=== PATIENT | female | born 1970 | race Asian ===

== ENCOUNTER 2021-02-22 17:20 | Observation (INO) ==
[2021-02-22 18:44] LABS: Appearance Urine Clear (Clear); Bilirubin Urine Negative (Negative); Blood Urine Negative (Negative); Color Urine Yellow; Glucose Urine UA Negative (Negative); Ketones Urine Negative (Negative); Leukocyte Esterase Urine Negative (Negative); Nitrite Urine Negative (Negative); Protein Urine Negative (Negative); Specific Gravity Urine 1.013 (1.000-1.030); Urobilinogen Urine Negative (Negative); pH Urine 5.5 (4.5-7.5)
[2021-02-22 19:02] LABS: Hematocrit (blood only) 24.1 % (37-47); Hemoglobin 6.7 g/dL (12.0-16.0); Mean Corpuscular Hemoglobin 18.3 pg (25-34); Mean Corpuscular Hgb Conc 27.8 g/dL (32-36); Mean Corpuscular Volume 65.7 fL (80-100); Mean Platelet Volume 8.7 fL (7.4-10.4); Platelet Count 417 K/uL (130-400); RDW Coefficient of Variation 19.7 % (11.5-14.5); RDW Standard Deviation 47.2 fL (36.4-46.3); Red Blood Count 3.67 M/uL (4.2-5.4); White Blood Count 5.28 K/uL (4.8-10.8)
[2021-02-22] MEDS ORDERED: SODIUM CHLORIDE 0.9% 250 ML IV PRN (19:03)
[2021-02-22 19:13] LABS: Anisocytosis Present; Basophils # (auto) 0.02 K/uL (0-0.2); Basophils % (auto) 0.4 %; Eosinophils # (auto) 0.03 K/uL (0-0.5); Eosinophils % (auto) 0.6 %; Lymphocytes # (auto) 2.62 K/uL (1.2-3.4); Lymphocytes % (auto) 49.6 %; Microcytosis Present; Monocytes # (auto) 0.44 K/uL (0.11-0.59); Monocytes % (auto) 8.3 %; Neutrophils # (auto) 2.17 K/uL (1.4-6.5); Neutrophils % (auto) 41.1 %; Ovalocytes 1+; Tear Drop Cells Occasional
[2021-02-22 19:19] LABS: Albumin Level 3.6 gm/dl (3.4-5.0); BUN Creatinine Ratio 20.7 (10-20); Calcium 8.4 mg/dl (8.5-10.1); Creatinine Clr Calc Pharmacy 101.5 ml/min; Est GFR (African American) 124.2; Est GFR (Non-African American) 107.2; Potassium 3.6 mmol/L (3.5-5.1)
[2021-02-22 19:21] LABS: Albumin Globulin Ratio 0.9 (0.9-2); Bilirubin,Total 0.4 mg/dl (0.2-1); Globulin 4.2 gm/dl (2.5-4.0); Total Protein 7.8 gm/dl (6.4-8.2)
[2021-02-22 20:26] LABS: Influenza A virus by PCR Negative (Neg); Influenza B virus by PCR Negative (Neg); RSV by PCR Negative (Neg); SARS CoV2 RNA(COVID-19) InHosp NEGATIVE (Negative)
[2021-02-22] MEDS ORDERED: NITROGLYCERIN SL 0.4 MG/TAB TAB SL PRN (22:28)
[2021-02-22] MEDS ORDERED: ACETAMINOPHEN 325 MG TAB PO PRN (22:28)
[2021-02-22] MEDS ORDERED: ONDANSETRON INJ 2 MG/ML 2 ML VIAL IV PRN (22:28)
--- NOTE | 2021-02-23 01:32 | Emergency Department Note ---
History of Present Illness General Chief Complaint: Abnormal Labs/Diagnostic Testing Stated Complaint: ABNORMAL LABS, LOW IRON Time Seen by Provider: 02/22/21 19:01 History of Present Illness Provider Complaint: + abnormal lab (Low iron) Description of abnormal result: Low iron Associated symptoms: + shortness of breath (Exertional); no fever, no chills, no chest pain, no rash, no nausea and no abdominal pain HPI narrative: No melena or Hematochezia. Patient states she is on her menstrual period patient denies any heavy or excessive menstrual periods. Home Medications Medication Instructions Recorded Confirmed Type cholecalciferol (vitamin D3) 0 mcg PO QAM 02/22/21 02/22/21 History [Vitamin D3] multivitamin 1 tab PO QAM 02/22/21 02/22/21 History Allergies Allergy/AdvReac Type Severity Reaction Status Date / Time No Known Allergies Allergy Unverified 02/22/21 19:40 Past Med/Surg History Medical History (Updated 02/23/21 @ 01:32 by Michael Ley) No pertinent family history No pertinent past medical history Surgical History (Updated 02/23/21 @ 01:28 by Michael Ley) No pertinent past surgical history Social History Smoking Status: Never smoker Hx Alcohol Use: No Hx Substance Use: No Preferred Language: German Communication Ability: Effective Demand Planning Analyst Required: No Beliefs That Will Affect Care: Episcopalian Episcopalian Beliefs: baptist Current Living Situation: Family Feels Safe at Home: Yes Safety Concerns: Feels Safe At This Time Assistive Devices: None Review of Systems A total of 10 systems reviewed and were otherwise negative Physical Exam Vital Signs: Vital Signs - 24 hr 02/22/21 17:29 02/22/21 19:30 02/22/21 20:32 Temperature 36.5 C 36.7 C Temperature Source Temporal Artery Sc an Oral Pulse Rate 79 70 Pulse Rate [Bilate ral Radial] 70 Pulse Rhythm Regular Pulse Rhythm [Bila teral Radial] Regular Pulse Strength Normal Pulse Strength [Bi lateral Radial] Normal Respiratory Rate 16 18 16 Respiratory Effort / Characteristics Non-Labored Sponta neous Non-Labored Respiratory Depth Normal Normal Respiratory Patter n Regular Regular Blood Pressure 138/73 108/72 Blood Pressure [Ri ght Arm] 133/89 Blood Pressure Chaya n 94 84 Blood Pressure Chaya n [Right Arm] 103 Blood Pressure Pos ition Sitting Sitting Blood Pressure Pos ition [Right Arm] Sitting Pulse Oximetry 100 100 100 Oxygen Delivery Me thod Room Air Room Air Sepsis Recent Feve r Within 48 Hours No Sepsis New/Unexpla ined Change in Men naina Status N/A Sepsis Action Take n by Nursing No Action Required 02/22/21 20:48 02/22/21 20:50 02/22/21 21:05 Temperature 37.1 C 37.0 C 36.9 C Temperature Source Oral Oral Oral Pulse Rate 59 L 65 78 Pulse Rate [Bilate ral Radial] Pulse Rhythm Regular Regular Regular Pulse Rhythm [Bila teral Radial] Pulse Strength Normal Normal Normal Pulse Strength [Bi lateral Radial] Respiratory Rate 18 18 16 Respiratory Effort / Characteristics Respiratory Depth Respiratory Patter n Blood Pressure 126/71 120/81 120/73 Blood Pressure [Ri ght Arm] Blood Pressure Chaya n 89 94 88 Blood Pressure Chaya n [Right Arm] Blood Pressure Pos ition Sitting Sitting Blood Pressure Pos ition [Right Arm] Pulse Oximetry 100 100 100 Oxygen Delivery Me thod Sepsis Recent Feve r Within 48 Hours Sepsis New/Unexpla ined Change in Men naina Status Sepsis Action Take n by Nursing Physical Exam: Physical Exam GENERAL: She is oriented to person, place, and time. She appears well-developed and well-nourished. She does not appear distressed. HENT: Exam performed. -Head: Normocephalic and atraumatic. -Right Ear: External ear normal. No mastoid tenderness. -Left Ear: External ear normal. No mastoid tenderness. -Mouth/Throat: The oropharynx is clear and moist. No trismus in the jaw. No dental abscesses or uvula swelling. No oropharyngeal exudate or tonsillar abscesses. EYES: Conjunctivae and EOM are normal. Pupils are equal, round, and reactive to light. Right eye exhibits no discharge. Left eye exhibits no discharge. No scleral icterus. NECK: Normal range of motion. Neck supple. No JVD present. No spinous process tenderness present. No carotid bruit present. No rigidity. No tracheal deviation and normal range of motion present. No Brudzinski's sign and no Kernig's sign noted. CV: Normal rate, regular rhythm, normal heart sounds and intact distal pulses. There is no peripheral edema. Palpable radial pulses bue. PULM/CHEST: Effort normal and breath sounds normal. No respiratory distress. No stridor. She has no wheezes. She has no rales. -Chest Wall: She exhibits no tenderness. ABD: The abdomen is soft. Bowel sounds are normal. She has no distension. No mass is present. There is no tenderness. There is no rebound, no guarding, no Dorman's sign and no tenderness at McBurney's point. Rovsig negative. Rectal: Performed with female nursing plant safety leader at bedside. Hemoccult negative. MUSC/SKEL: Normal range of motion. There is no peripheral edema, tenderness or deformity. LYMPH: No cervical adenopathy. NEURO: She is alert and oriented to person, place, and time. She has normal strength. No cranial nerve deficit or sensory deficit. Coordination and gait normal. GCS eye subscore is 4. GCS verbal subscore is 5. GCS motor subscore is 6. Cerebellar tests wnl. SKIN: Skin is warm and dry. She is not diaphoretic. PSYCH: She has a normal mood and affect. Behavior is normal. Judgment and thought content normal. Course Course 1900: The patient was evaluated in room A12. A complete history and physical exam was performed Cardiac monitoring: An order was placed for continuous cardiac monitoring. The monitor shows a rate of 60 with sinus rhythm 1935: Vital signs stable. Labs show hemoglobin of 6.7. Patient be transfused 2 units packed red blood cells. Patient will be admitted to the [facility] team Dr. Palomino notified Medical Decision Making Laboratory Data Result diagrams: 02/22/21 18:40 02/22/21 18:40 Lab Results 02/22/21 02/22/21 02/22/21 Range/Units 18:30 18:40 18:40 WBC 5.28 (4.8-10.8) K/uL RBC 3.67 L (4.2-5.4) M/uL Hgb 6.7 L* (12.0-16.0) g/dL Hct 24.1 L (37-47) % MCV 65.7 L (80-100) fL MCH 18.3 L (25-34) pg MCHC 27.8 L (32-36) g/dL RDW Std Deviation 47.2 H (36.4-46.3) fL RDW Coeff of Syed 19.7 H (11.5-14.5) % Plt Count 417 H (130-400) K/uL MPV 8.7 (7.4-10.4) fL Immature Gran % (Auto) 0.0 % Neut % (Auto) 41.1 % Lymph % (Auto) 49.6 % [place] % (Auto) 8.3 % Eos % (Auto) 0.6 % Baso % (Auto) 0.4 % Neut # (Auto) 2.17 (1.4-6.5) K/uL Lymph # (Auto) 2.62 (1.2-3.4) K/uL [place] # (Auto) 0.44 (0.11-0.59) K/uL Eos # (Auto) 0.03 (0-0.5) K/uL Baso # (Auto) 0.02 (0-0.2) K/uL Immature Gran # (Auto) 0.00 (0.00-0.02) K/uL Anisocytosis Present Microcytosis Present Tear Drop Cells Occasional Ovalocytes 1+ Sodium 140 (136-145) mmol/L Potassium 3.6 (3.5-5.1) mmol/L Chloride 109 H (98-107) mmol/L Carbon Dioxide 25 (21-32) mmol/L Anion Gap 5.0 (3-11) BUN 13 (7-18) mg/dl Creatinine 0.61 (0.6-1.2) mg/dl Est Cr Clr Drug Dosing 101.5 ml/min Est GFR ( Amer) 124.2 Est GFR (Non-Af Amer) 107.2 BUN/Creatinine Ratio 20.7 H (10-20) Glucose 90 (70-99) mg/dl Calcium 8.4 L (8.5-10.1) mg/dl Iron 17 L (35-150) mcg/dl Total Bilirubin 0.4 (0.2-1) mg/dl AST 15 (15-37) U/L ALT 20 (12-78) U/L Alkaline Phosphatase 93 (45-117) U/L Total Protein 7.8 (6.4-8.2) gm/dl Albumin 3.6 (3.4-5.0) gm/dl Globulin 4.2 H (2.5-4.0) gm/dl Albumin/Globulin Ratio 0.9 (0.9-2) Urine Color Yellow Urine Appearance Clear (Clear) Urine pH 5.5 (4.5-7.5) Ur Specific [place] 1.013 (1.000-1.030) Urine Protein Negative (Negative) Urine Glucose (UA) Negative (Negative) Urine Ketones Negative (Negative) Urine Blood Negative (Negative) Urine Nitrite Negative (Negative) Urine Bilirubin Negative (Negative) Urine Urobilinogen Negative (Negative) Ur Leukocyte Esterase Negative (Negative) COVID-19 Eval Order SARS-CoV-2 (PCR) (Negative) Influenza Type A (PCR) (Neg) Influenza Type B (PCR) (Neg) RSV (RT-PCR) (Neg) Blood Type Blood Type Recheck Antibody Screen Crossmatch 02/22/21 02/22/21 02/22/21 Range/Units 19:24 19:26 19:35 WBC (4.8-10.8) K/uL RBC (4.2-5.4) M/uL Hgb (12.0-16.0) g/dL Hct (37-47) % MCV (80-100) fL MCH (25-34) pg MCHC (32-36) g/dL RDW Std Deviation (36.4-46.3) fL RDW Coeff of Syed (11.5-14.5) % Plt Count (130-400) K/uL MPV (7.4-10.4) fL Immature Gran % (Auto) % Neut % (Auto) % Lymph % (Auto) % [place] % (Auto) % Eos % (Auto) % Baso % (Auto) % Neut # (Auto) (1.4-6.5) K/uL Lymph # (Auto) (1.2-3.4) K/uL [place] # (Auto) (0.11-0.59) K/uL Eos # (Auto) (0-0.5) K/uL Baso # (Auto) (0-0.2) K/uL Immature Gran # (Auto) (0.00-0.02) K/uL Anisocytosis Microcytosis Tear Drop Cells Ovalocytes Sodium (136-145) mmol/L Potassium (3.5-5.1) mmol/L Chloride (98-107) mmol/L Carbon Dioxide (21-32) mmol/L Anion Gap (3-11) BUN (7-18) mg/dl Creatinine (0.6-1.2) mg/dl Est Cr Clr Drug Dosing ml/min Est GFR ( Amer) Est GFR (Non-Af Amer) BUN/Creatinine Ratio (10-20) Glucose (70-99) mg/dl Calcium (8.5-10.1) mg/dl Iron (35-150) mcg/dl Total Bilirubin (0.2-1) mg/dl AST (15-37) U/L ALT (12-78) U/L Alkaline Phosphatase (45-117) U/L Total Protein (6.4-8.2) gm/dl Albumin (3.4-5.0) gm/dl Globulin (2.5-4.0) gm/dl Albumin/Globulin Ratio (0.9-2) Urine Color Urine Appearance (Clear) Urine pH (4.5-7.5) Ur Specific [place] (1.000-1.030) Urine Protein (Negative) Urine Glucose (UA) (Negative) Urine Ketones (Negative) Urine Blood (Negative) Urine Nitrite (Negative) Urine Bilirubin (Negative) Urine Urobilinogen (Negative) Ur Leukocyte Esterase (Negative) COVID-19 Eval Order [facility] at [facility] SARS-CoV-2 (PCR) (Negative) Influenza Type A (PCR) (Neg) Influenza Type B (PCR) (Neg) RSV (RT-PCR) (Neg) Blood Type B Positive Blood Type Recheck B Positive Antibody Screen NEGATIVE Crossmatch See Detail 02/22/21 Range/Units 19:35 WBC (4.8-10.8) K/uL RBC (4.2-5.4) M/uL Hgb (12.0-16.0) g/dL Hct (37-47) % MCV (80-100) fL MCH (25-34) pg MCHC (32-36) g/dL RDW Std Deviation (36.4-46.3) fL RDW Coeff of Syed (11.5-14.5) % Plt Count (130-400) K/uL MPV (7.4-10.4) fL Immature Gran % (Auto) % Neut % (Auto) % Lymph % (Auto) % [place] % (Auto) % Eos % (Auto) % Baso % (Auto) % Neut # (Auto) (1.4-6.5) K/uL Lymph # (Auto) (1.2-3.4) K/uL [place] # (Auto) (0.11-0.59) K/uL Eos # (Auto) (0-0.5) K/uL Baso # (Auto) (0-0.2) K/uL Immature Gran # (Auto) (0.00-0.02) K/uL Anisocytosis Microcytosis Tear Drop Cells Ovalocytes Sodium (136-145) mmol/L Potassium (3.5-5.1) mmol/L Chloride (98-107) mmol/L Carbon Dioxide (21-32) mmol/L Anion Gap (3-11) BUN (7-18) mg/dl Creatinine (0.6-1.2) mg/dl Est Cr Clr Drug Dosing ml/min Est GFR ( Amer) Est GFR (Non-Af Amer) BUN/Creatinine Ratio (10-20) Glucose (70-99) mg/dl Calcium (8.5-10.1) mg/dl Iron (35-150) mcg/dl Total Bilirubin (0.2-1) mg/dl AST (15-37) U/L ALT (12-78) U/L Alkaline Phosphatase (45-117) U/L Total Protein (6.4-8.2) gm/dl Albumin (3.4-5.0) gm/dl Globulin (2.5-4.0) gm/dl Albumin/Globulin Ratio (0.9-2) Urine Color Urine Appearance (Clear) Urine pH (4.5-7.5) Ur Specific [place] (1.000-1.030) Urine Protein (Negative) Urine Glucose (UA) (Negative) Urine Ketones (Negative) Urine Blood (Negative) Urine Nitrite (Negative) Urine Bilirubin (Negative) Urine Urobilinogen (Negative) Ur Leukocyte Esterase (Negative) COVID-19 Eval Order SARS-CoV-2 (PCR) NEGATIVE (Negative) Influenza Type A (PCR) Negative (Neg) Influenza Type B (PCR) Negative (Neg) RSV (RT-PCR) Negative (Neg) Blood Type Blood Type Recheck Antibody Screen Crossmatch MDM Narrative Vital signs stable. Labs show hemoglobin of 6.7. Patient be transfused 2 units packed red blood cells. Patient will be admitted to the [facility] hospitalist team Dr. Palepu notified Impression & Plan Anemia Critical Care Time Critical Care Time: Yes Total Critical Care Time: 35 I have personally spent greater than 35 minutes of critical care time in the direct management of this patient. This includes bedside care, interpretation of diagnostic studies, and testing, discussion with consultants, patient, and family members, and other required patient management activities. This 35 minutes is in excess of all separately billable procedures. Discharge Plan Visit Data Chief Complaint: Abnormal Labs/Diagnostic Testing Stated Complaint: ABNORMAL LABS, LOW IRON ED Provider: Michael Ley Discharge Problem: Anemia Patient Disposition: Admitted As Inpatient Discharge Instructions Interventions: ED Discharge Assessment Last Done: 02/22/21 22:40 Discharge Problem: Anemia Qualifiers: Anemia type: unspecified type Qualified Code(s): D64.9 - Anemia, unspecified
--- NOTE | 2021-02-23 01:36 | History and Physical Report ---
DATE OF ADMISSION: 02/22/2021 CHIEF COMPLAINT: Anemia. HISTORY OF PRESENT ILLNESS: This is a 50-year-old female with past medical history significant for recurrent UTIs, history of migraines. Was sent from the family doctor because of outpatient labs showing anemia with hemoglobin of 6.9. The patient states she has 3 kids and since her third kid was born in 2012,since then she did not see any doctor. She is from [place]. She was in [place] for 10 years and 4 years ago she moved to [place]. She works in [employer]. She went to family doctor on 02/11/2021 because of headaches. She has a history of migraines, but they are not getting better. At that time, she also complained of shortness of breath on hiking, on exertion. Excedrin Migraine over the counter for migraine was recommended. For shortness of breath on exertion and fatigue, labs were done, which showed anemia and the PCP was trying to call her, but she did not seed cone picker the phone for the last 2 weeks and today she got a letter in the mail and she came to the hospital. She denies any blood in the stools or black stools. No hematuria, no abdominal pain, no diarrhea or constipation, no chest pain, no dizziness, no blurred vision, no earache, no runny nose, no cough, no fever, no chills. No Heavy menses. The patient says she is not eating healthy. She only eats , white rice mixed with brown rice every day, does not eat much vegetables, does not like meat or fish. She has three kids and she works in [employer] and she is always busy and she thought her fatigue was possibly from her busy life and never went to a doctor. Currently resting comfortably and hemodynamically stable. ALLERGIES: No known drug allergies. PAST MEDICAL HISTORY: As mentioned above. PAST SURGICAL HISTORY: No surgical history on file. MEDICATIONS: Recently started on vitamin D and multivitamin. FAMILY HISTORY: Mother had a stroke. SOCIAL HISTORY: No smoking, no alcohol. Lives with her family. REVIEW OF SYSTEMS: As per HPI. Rest of the review of systems negative. PHYSICAL EXAMINATION: GENERAL: The patient is of moderate build, not in acute distress. VITAL SIGNS: Temperature 37, pulse 65, respiratory rate 18, blood pressure 120/81, oxygen 100% on room air. HEENT: Pupils equal, round, reactive to light. Oral mucosa moist. NECK: No JVD, no neck masses. CARDIOVASCULAR: S1, S2 heard, regular rate and rhythm, no murmur, no gallop. RESPIRATORY SYSTEM: Normal AP diameter. No accessory muscle use. No wheezing, no crackles. ABDOMEN: Soft, bowel sounds present, nontender. No distention. CENTRAL NERVOUS SYSTEM: Cranial nerves II-XII grossly intact. Nonfocal. EXTREMITIES: No edema, no erythema. LABORATORY DATA: WBC 5.2, hemoglobin 6.7, hematocrit 24.1, platelets 417. Sodium 140, potassium 3.6, chloride 109, bicarbonate 25, BUN 13, creatinine 0.6, serum glucose 90, calcium 8.4, iron 17, total bilirubin 0.4, AST 15, ALT 20, alkaline phosphatase 93. Urinalysis negative. SARS-CoV-2 PCR negative. Influenza A and B PCR negative, RSV PCR negative. Vaccination, as per the [facility], she received J and J COVID vaccine on 02/04/2021. ASSESSMENT AND PLAN: A 50-year-old female who presents with shortness of breath on exertion and anemia. 1. Symptomatic anemia with shortness of breath on exertion: Hemoglobin is 6.7, microcytic anemia. Iron is low at 17. As per the patient, she only eats brown rice mixed with white rice, does not eat any vegetables and does not eat meat. She says her menses are getting shorter, no heavy bleeding. No other obvious source of bleeding. We will check stool for Hemoccult. We will also check vitamin B12 and folate levels. ER ordered 2 units of PRBCs, which will be continued.Consult GI for any other further recommendations. May need iron supplement on discharge and follow up with PCP for any further workup and follows of labs.. 2. History of migraines: Tylenol p.r.n. for now. 3. Deep vein thrombosis prophylaxis: Sequential compression devices. DISPOSITION: Admit to [facility]. Expect to discharge home and follow with family doctor. BEV
[2021-02-23 05:56] LABS: BUN Creatinine Ratio 25.6 (10-20); Creatinine Clr Calc Pharmacy 96.7 ml/min; Est GFR (African American) 122.3; Est GFR (Non-African American) 105.5; Magnesium 2.3 mg/dl (1.8-2.4); Potassium 3.9 mmol/L (3.5-5.1)
[2021-02-23 06:01] LABS: Ferritin 4.2 ng/ml (8-388)
[2021-02-23 06:04] LABS: Hematocrit (blood only) 32.3 % (37-47); Hemoglobin 9.8 g/dL (12.0-16.0); Mean Corpuscular Hemoglobin 22.1 pg (25-34); Mean Corpuscular Hgb Conc 30.3 g/dL (32-36); Mean Corpuscular Volume 72.9 fL (80-100); Mean Platelet Volume 8.6 fL (7.4-10.4); Platelet Count 283 K/uL (130-400); RDW Coefficient of Variation 24.7 % (11.5-14.5); RDW Standard Deviation 64.9 fL (36.4-46.3); Red Blood Count 4.43 M/uL (4.2-5.4); White Blood Count 4.81 K/uL (4.8-10.8)
[2021-02-23 06:11] LABS: Anisocytosis Present; Basophils # (auto) 0.03 K/uL (0-0.2); Basophils % (auto) 0.6 %; Eosinophils # (auto) 0.06 K/uL (0-0.5); Eosinophils % (auto) 1.2 %; Hypochromasia Present; Immature Granulocytes # (auto) 0.01 K/uL (0.00-0.02); Immature Granulocytes % (auto) 0.2 %; Lymphocytes # (auto) 2.82 K/uL (1.2-3.4); Lymphocytes % (auto) 58.6 %; Monocytes # (auto) 0.43 K/uL (0.11-0.59); Monocytes % (auto) 8.9 %; Neutrophils # (auto) 1.46 K/uL (1.4-6.5); Neutrophils % (auto) 30.5 %; Ovalocytes 1+
[2021-02-23 06:39] LABS: Folate (Folic Acid) 17.4 ng/ml (>5.38)
--- NOTE | 2021-02-23 07:15 | Hospitalist Progress Note ---
Date of Service February 23, 2021 Assessment & Plan (1) Microcytic anemia: A 50-year-old female who presents with shortness of breath on exertion and anemia. 1. Symptomatic anemia with shortness of breath on exertion: Hemoglobin 6.7 on admission, microcytic anemia. Iron is low at 17. - iron def. anemia, likely diet related, but will need to rule out other causes As per the patient, she only eats brown rice mixed with white rice, does not eat any vegetables and does not eat meat. She says her menses are getting shorter, no heavy bleeding. No other obvious source of bleeding. UA negat. for blood Hemoccult ordered. checked vitamin B12 and folate levels - wnl. CT abd./pelvis - 1. No evidence of bowel obstruction. No evidence of free air 2. Trace pericholecystic fluid. No gallbladder distention. No stones identified. 3. No renal, ureteral, or bladder calculi identified 4. No evidence of acute diverticulitis. No evidence of acute appendicitis. 5. No evidence of occult intra-abdominal or pelvic malignancy ER ordered 2 units of PRBCs, pt is now s/p blood transfusion, current Hgb 9.8 GI consulted for any other further recommendations. Recommend outpt EGD/ colonoscopy. Iron supplement on discharge. Pt is to closely follow up with PCP for any further workup and follows of labs. 2. History of migraines: Tylenol p.r.n. for now. DVT prophylaxis: SCDs. DISPOSITION: Plan to discharge home and follow with family doctor and GI. Admission and Anticipated Discharge Date Admission Date: February 22, 2021 Subjective Patient seen in follow-up of anemia She was transfused 2 units overnight Currently hemoglobin is up 9.8, she feels well, has no symptoms, no complaints - specifically denies any chest pain, shortness of breath, dizziness, lightheadedness Patient reports she never had much symptoms besides headache and shortness of breath when hiking GI consulted Review of Systems Review of Systems: All systems reviewed & are unremarkable except as noted in HPI & below Constitutional: no fever and no chills Respiratory: no cough and no dyspnea Cardiovascular: no chest pain and no palpitations Gastrointestinal: no abdominal pain, no nausea and no vomiting Physical Exam Physical Exam: GENERAL: The patient is of moderate build, not in acute distress. HEENT: NC/AT, Pupils equal, round, reactive to light. Oral mucosa moist. NECK: No JVD, no neck masses. CARDIOVASCULAR: S1, S2 heard, regular rate and rhythm, no murmur, no gallop. RESPIRATORY SYSTEM: Normal AP diameter. No accessory muscle use. No wheezing, no crackles. ABDOMEN: Soft, bowel sounds present, nontender. No distention. NEURO: Alert oriented x3, speech fluent, no facial asymmetry, moves all 4 extremities spontaneously and w/o difficulty EXTREMITIES: No edema, no erythema. SIN: warm, dry, no rashes Results & Data Results & Data ([facility]) Vital Signs (Past 12 Hours) Vital Signs Temp Pulse Pulse Pulse Resp BP BP 02/23/21 02:47 36.5 C 65 18 112/69 02/23/21 01:45 36.3 C L 59 L 16 115/80 02/23/21 00:45 36.6 C 51 L 16 120/80 02/23/21 00:15 37 C 43 L 16 109/71 02/23/21 00:00 36.6 C 59 L 16 111/74 02/22/21 23:55 62 02/22/21 23:41 36.7 C 55 L 16 115/76 02/22/21 22:41 36.9 C 63 16 111/73 02/22/21 22:28 36.7 C 92 H 18 118/71 02/22/21 21:05 36.9 C 78 16 120/73 02/22/21 20:50 37.0 C 65 18 120/81 02/22/21 20:48 37.1 C 59 L 18 126/71 02/22/21 20:32 36.7 C 70 16 108/72 02/22/21 19:30 70 18 133/89 Pulse Ox 02/23/21 02:47 98 02/23/21 01:45 97 02/23/21 00:45 98 02/23/21 00:15 96 02/23/21 00:00 96 02/22/21 23:55 02/22/21 23:41 97 02/22/21 22:41 99 02/22/21 22:28 100 02/22/21 21:05 100 02/22/21 20:50 100 02/22/21 20:48 100 02/22/21 20:32 100 02/22/21 19:30 100 Laboratory Results 02/23/21 02/23/21 02/23/21 Range/Units 05:20 05:20 05:20 WBC 4.81 (4.8-10.8) K/uL RBC 4.43 (4.2-5.4) M/uL Hgb 9.8 L D (12.0-16.0) g/dL Hct 32.3 L (37-47) % MCV 72.9 L D (80-100) fL MCH 22.1 L (25-34) pg MCHC 30.3 L (32-36) g/dL RDW Std Deviation 64.9 H (36.4-46.3) fL RDW Coeff of Syed 24.7 H (11.5-14.5) % Plt Count 283 (130-400) K/uL MPV 8.6 (7.4-10.4) fL Immature Gran % (Auto) 0.2 % Neut % (Auto) 30.5 % Lymph % (Auto) 58.6 % Glenn % (Auto) 8.9 % Eos % (Auto) 1.2 % Baso % (Auto) 0.6 % Neut # (Auto) 1.46 (1.4-6.5) K/uL Lymph # (Auto) 2.82 (1.2-3.4) K/uL Glenn # (Auto) 0.43 (0.11-0.59) K/uL Eos # (Auto) 0.06 (0-0.5) K/uL Baso # (Auto) 0.03 (0-0.2) K/uL Immature Gran # (Auto) 0.01 (0.00-0.02) K/uL Hypochromasia Present Anisocytosis Present Microcytosis Tear Drop Cells Ovalocytes 1+ Sodium 142 (136-145) mmol/L Potassium 3.9 (3.5-5.1) mmol/L Chloride 113 H (98-107) mmol/L Carbon Dioxide 27 (21-32) mmol/L Anion Gap 2.0 L (3-11) BUN 16 (7-18) mg/dl Creatinine 0.64 (0.6-1.2) mg/dl Est Cr Clr Drug Dosing 96.7 ml/min Est GFR ( Amer) 122.3 Est GFR (Non-Af Amer) 105.5 BUN/Creatinine Ratio 25.6 H (10-20) Glucose 86 (70-99) mg/dl Calcium 8.0 L (8.5-10.1) mg/dl Magnesium 2.3 (1.8-2.4) mg/dl Iron (35-150) mcg/dl Ferritin 4.2 L (8-388) ng/ml Total Bilirubin (0.2-1) mg/dl AST (15-37) U/L ALT (12-78) U/L Alkaline Phosphatase (45-117) U/L Total Protein (6.4-8.2) gm/dl Albumin (3.4-5.0) gm/dl Globulin (2.5-4.0) gm/dl Albumin/Globulin Ratio (0.9-2) Vitamin B12 372 (193-986) pg/ml Folate 17.40 (>5.38) ng/ml Urine Color Urine Appearance (Clear) Urine pH (4.5-7.5) Ur Specific Ramona (1.000-1.030) Urine Protein (Negative) Urine Glucose (UA) (Negative) Urine Ketones (Negative) Urine Blood (Negative) Urine Nitrite (Negative) Urine Bilirubin (Negative) Urine Urobilinogen (Negative) Ur Leukocyte Esterase (Negative) POC Ur Test COVID-19 Eval Order SARS-CoV-2 (PCR) (Negative) Influenza Type A (PCR) (Neg) Influenza Type B (PCR) (Neg) RSV (RT-PCR) (Neg) Blood Type Blood Type Recheck Antibody Screen Crossmatch 02/22/21 02/22/21 02/22/21 Range/Units 19:35 19:35 19:26 WBC (4.8-10.8) K/uL RBC (4.2-5.4) M/uL Hgb (12.0-16.0) g/dL Hct (37-47) % MCV (80-100) fL MCH (25-34) pg MCHC (32-36) g/dL RDW Std Deviation (36.4-46.3) fL RDW Coeff of Syed (11.5-14.5) % Plt Count (130-400) K/uL MPV (7.4-10.4) fL Immature Gran % (Auto) % Neut % (Auto) % Lymph % (Auto) % Glenn % (Auto) % Eos % (Auto) % Baso % (Auto) % Neut # (Auto) (1.4-6.5) K/uL Lymph # (Auto) (1.2-3.4) K/uL Glenn # (Auto) (0.11-0.59) K/uL Eos # (Auto) (0-0.5) K/uL Baso # (Auto) (0-0.2) K/uL Immature Gran # (Auto) (0.00-0.02) K/uL Hypochromasia Anisocytosis Microcytosis Tear Drop Cells Ovalocytes Sodium (136-145) mmol/L Potassium (3.5-5.1) mmol/L Chloride (98-107) mmol/L Carbon Dioxide (21-32) mmol/L Anion Gap (3-11) BUN (7-18) mg/dl Creatinine (0.6-1.2) mg/dl Est Cr Clr Drug Dosing ml/min Est GFR ( Amer) Est GFR (Non-Af Amer) BUN/Creatinine Ratio (10-20) Glucose (70-99) mg/dl Calcium (8.5-10.1) mg/dl Magnesium (1.8-2.4) mg/dl Iron (35-150) mcg/dl Ferritin (8-388) ng/ml Total Bilirubin (0.2-1) mg/dl AST (15-37) U/L ALT (12-78) U/L Alkaline Phosphatase (45-117) U/L Total Protein (6.4-8.2) gm/dl Albumin (3.4-5.0) gm/dl Globulin (2.5-4.0) gm/dl Albumin/Globulin Ratio (0.9-2) Vitamin B12 (193-986) pg/ml Folate (>5.38) ng/ml Urine Color Urine Appearance (Clear) Urine pH (4.5-7.5) Ur Specific Ramona (1.000-1.030) Urine Protein (Negative) Urine Glucose (UA) (Negative) Urine Ketones (Negative) Urine Blood (Negative) Urine Nitrite (Negative) Urine Bilirubin (Negative) Urine Urobilinogen (Negative) Ur Leukocyte Esterase (Negative) POC Ur Test COVID-19 Eval Order CovFluRsv at [facility] SARS-CoV-2 (PCR) NEGATIVE (Negative) Influenza Type A (PCR) Negative (Neg) Influenza Type B (PCR) Negative (Neg) RSV (RT-PCR) Negative (Neg) Blood Type Blood Type Recheck B Positive Antibody Screen Crossmatch 02/22/21 02/22/21 02/22/21 Range/Units 19:24 18:40 18:40 WBC 5.28 (4.8-10.8) K/uL RBC 3.67 L (4.2-5.4) M/uL Hgb 6.7 L* (12.0-16.0) g/dL Hct 24.1 L (37-47) % MCV 65.7 L (80-100) fL MCH 18.3 L (25-34) pg MCHC 27.8 L (32-36) g/dL RDW Std Deviation 47.2 H (36.4-46.3) fL RDW Coeff of Syed 19.7 H (11.5-14.5) % Plt Count 417 H (130-400) K/uL MPV 8.7 (7.4-10.4) fL Immature Gran % (Auto) 0.0 % Neut % (Auto) 41.1 % Lymph % (Auto) 49.6 % Glenn % (Auto) 8.3 % Eos % (Auto) 0.6 % Baso % (Auto) 0.4 % Neut # (Auto) 2.17 (1.4-6.5) K/uL Lymph # (Auto) 2.62 (1.2-3.4) K/uL Glenn # (Auto) 0.44 (0.11-0.59) K/uL Eos # (Auto) 0.03 (0-0.5) K/uL Baso # (Auto) 0.02 (0-0.2) K/uL Immature Gran # (Auto) 0.00 (0.00-0.02) K/uL Hypochromasia Anisocytosis Present Microcytosis Present Tear Drop Cells Occasional Ovalocytes 1+ Sodium 140 (136-145) mmol/L Potassium 3.6 (3.5-5.1) mmol/L Chloride 109 H (98-107) mmol/L Carbon Dioxide 25 (21-32) mmol/L Anion Gap 5.0 (3-11) BUN 13 (7-18) mg/dl Creatinine 0.61 (0.6-1.2) mg/dl Est Cr Clr Drug Dosing 101.5 ml/min Est GFR ( Amer) 124.2 Est GFR (Non-Af Amer) 107.2 BUN/Creatinine Ratio 20.7 H (10-20) Glucose 90 (70-99) mg/dl Calcium 8.4 L (8.5-10.1) mg/dl Magnesium (1.8-2.4) mg/dl Iron 17 L (35-150) mcg/dl Ferritin (8-388) ng/ml Total Bilirubin 0.4 (0.2-1) mg/dl AST 15 (15-37) U/L ALT 20 (12-78) U/L Alkaline Phosphatase 93 (45-117) U/L Total Protein 7.8 (6.4-8.2) gm/dl Albumin 3.6 (3.4-5.0) gm/dl Globulin 4.2 H (2.5-4.0) gm/dl Albumin/Globulin Ratio 0.9 (0.9-2) Vitamin B12 (193-986) pg/ml Folate (>5.38) ng/ml Urine Color Urine Appearance (Clear) Urine pH (4.5-7.5) Ur Specific Ramona (1.000-1.030) Urine Protein (Negative) Urine Glucose (UA) (Negative) Urine Ketones (Negative) Urine Blood (Negative) Urine Nitrite (Negative) Urine Bilirubin (Negative) Urine Urobilinogen (Negative) Ur Leukocyte Esterase (Negative) POC Ur Test COVID-19 Eval Order SARS-CoV-2 (PCR) (Negative) Influenza Type A (PCR) (Neg) Influenza Type B (PCR) (Neg) RSV (RT-PCR) (Neg) Blood Type B Positive Blood Type Recheck Antibody Screen NEGATIVE Crossmatch See Detail 02/22/21 02/22/21 Range/Units 18:30 18:30 WBC (4.8-10.8) K/uL RBC (4.2-5.4) M/uL Hgb (12.0-16.0) g/dL Hct (37-47) % MCV (80-100) fL MCH (25-34) pg MCHC (32-36) g/dL RDW Std Deviation (36.4-46.3) fL RDW Coeff of Syed (11.5-14.5) % Plt Count (130-400) K/uL MPV (7.4-10.4) fL Immature Gran % (Auto) % Neut % (Auto) % Lymph % (Auto) % Glenn % (Auto) % Eos % (Auto) % Baso % (Auto) % Neut # (Auto) (1.4-6.5) K/uL Lymph # (Auto) (1.2-3.4) K/uL Glenn # (Auto) (0.11-0.59) K/uL Eos # (Auto) (0-0.5) K/uL Baso # (Auto) (0-0.2) K/uL Immature Gran # (Auto) (0.00-0.02) K/uL Hypochromasia Anisocytosis Microcytosis Tear Drop Cells Ovalocytes Sodium (136-145) mmol/L Potassium (3.5-5.1) mmol/L Chloride (98-107) mmol/L Carbon Dioxide (21-32) mmol/L Anion Gap (3-11) BUN (7-18) mg/dl Creatinine (0.6-1.2) mg/dl Est Cr Clr Drug Dosing ml/min Est GFR ( Amer) Est GFR (Non-Af Amer) BUN/Creatinine Ratio (10-20) Glucose (70-99) mg/dl Calcium (8.5-10.1) mg/dl Magnesium (1.8-2.4) mg/dl Iron (35-150) mcg/dl Ferritin (8-388) ng/ml Total Bilirubin (0.2-1) mg/dl AST (15-37) U/L ALT (12-78) U/L Alkaline Phosphatase (45-117) U/L Total Protein (6.4-8.2) gm/dl Albumin (3.4-5.0) gm/dl Globulin (2.5-4.0) gm/dl Albumin/Globulin Ratio (0.9-2) Vitamin B12 (193-986) pg/ml Folate (>5.38) ng/ml Urine Color Yellow Urine Appearance Clear (Clear) Urine pH 5.5 (4.5-7.5) Ur Specific Ramona 1.013 (1.000-1.030) Urine Protein Negative (Negative) Urine Glucose (UA) Negative (Negative) Urine Ketones Negative (Negative) Urine Blood Negative (Negative) Urine Nitrite Negative (Negative) Urine Bilirubin Negative (Negative) Urine Urobilinogen Negative (Negative) Ur Leukocyte Esterase Negative (Negative) POC Ur Test Pending COVID-19 Eval Order SARS-CoV-2 (PCR) (Negative) Influenza Type A (PCR) (Neg) Influenza Type B (PCR) (Neg) RSV (RT-PCR) (Neg) Blood Type Blood Type Recheck Antibody Screen Crossmatch Medications Administered Current Inpatient Medications Acetaminophen (Acetaminophen 325 Mg Tab) 650 mg PO Q4H PRN PRN Reason: Pain or Fever Stop: 03/24/21 22:27 Multivitamins (Multivitamin Tab) 1 tab PO [facility] Stop: 03/25/21 08:59 Nitroglycerin (Nitroglycerin Sl 0.4 Mg/Tab Tab) 0.4 mg SL UD PRN PRN Reason: Chest Pain Stop: 03/24/21 22:27 Ondansetron HCl (Ondansetron Inj 2 Mg/Ml 2 Ml Vial) 4 mg IV Q6H PRN PRN Reason: Nausea Stop: 03/24/21 22:27 Vitamin D (Cholecalciferol 1,000 Units 25 Mcg Tab) 2[facility] Stop: 03/25/21 08:59
--- NOTE | 2021-02-23 08:56 | Gastrointestinal Consultation ---
Date of Consultation February 23, 2021 Assessment & Plan (1) Microcytic anemia: Patient admitted with a microcytic anemia. At the present time there is no obvious evidence of an active gastrointestinal bleed. We could certainly offer upper endoscopy and colonoscopy either as an inpatient or an outpatient depending on the wishes of the internal medicine service. Other potential causes of iron deficiency include urinary losses and gynecologic losses. Given the lack of gastrointestinal symptoms perhaps the patient would benefit from a urinalysis in addition to a CT scan of the abdomen and pelvis to screen for an occult gynecologic process. If the patient is discharged we will plan to have our office contact her early next week to schedule an outpatient upper endoscopy and colonoscopy. Recommendations Upper endoscopy and colonoscopy to be arranged, this can be done as an outpatient Consider ordering a urinalysis Consider ordering a CT of the abdomen and pelvis Consider addition of an iron supplement twice daily for 6 weeks then 1 time daily thereafter History of Present Illness Reason for Consultation: Anemia Attending Physician: Ketan Taylor MD History of Present Illness The patient is a 50-year-old Sami female who was referred to our service for evaluation of microcytic anemia. The patient was seen by her primary care provider several days ago and underwent routine labs due to a history of shortness of breath. The labs showed that she was profoundly anemic. The patient notes that aside from the shortness of breath she had otherwise been in her usual state of health. She notes that in the past she has been able to do all physical activity without any difficulties but has been noticing some increasing problems over the past 4 to 6 weeks. She denies having any alteration of bowel habits, denies abdominal pain, denies nausea, denies vomiting, hematemesis, coffee-ground emesis, dark sticky stool or hematochezia. She does not recall a family history of colorectal cancer or stomach cancer. She does note that over the past 2 years she has had some irregularity of her menses and believes it has been heavier than in past years. She has never undergone an upper endoscopy nor colonoscopy. Allergies Allergy/AdvReac Type Severity Reaction Status Date / Time No Known Allergies Allergy Unverified 02/22/21 19:40 Home Medications Medication Instructions Recorded Confirmed Type cholecalciferol (vitamin D3) 0 mcg PO QAM 02/22/21 02/22/21 History [Vitamin D3] multivitamin 1 tab PO QAM 02/22/21 02/22/21 History Patient History Medical History (Updated 02/23/21 @ 07:15 by Ketan Taylor MD) No pertinent family history No pertinent past medical history Surgical History (Updated 02/23/21 @ 01:28 by Michael Ley) No pertinent past surgical history Social History Smoking Status: Never smoker Hx Alcohol Use: No Hx Substance Use: No Preferred Language: Angolan Communication Ability: Effective Elevator Service Technician Required: No Beliefs That Will Affect Care: Hoahaoism Hoahaoism Beliefs: congregational Current Living Situation: Family Feels Safe at Home: Yes Safety Concerns: Feels Safe At This Time Assistive Devices: None Review of Systems Constitutional: + fatigue, + malaise and + weakness; no fever, no sweats and no weight loss Eyes: no diplopia Respiratory: + dyspnea; no cough, no change in sputum and no hemoptysis Cardiovascular: no chest pain and no chest pain with activity Gastrointestinal: no abdominal pain, no early satiety, no nausea, no vomiting, no hematemesis, no pain with swallowing, no change in stools and no melena Genitourinary: no dysuria and no urinary frequency Neurologic: no falls Psychiatric: no hopelessness Endocrine: no polydipsia Hematologic / Lymphatic: no easy bleeding, no coagulopathy and no unexplained weight loss Physical Exam Constitutional: well developed and well nourished; not ill appearing Eyes: PERRL, conjunctivae normal, anicteric sclerae Neck: normal visual inspection Respiratory: normal respiratory effort, lungs clear to auscultation Cardiovascular: Rate/Rhythm: regular rate and regular rhythm Gastrointestinal (Abdomen): Inspection/Auscultation: abdomen normal to inspection; abdomen not distended Percussion/Palpation: abdomen soft; abdomen nontender Results & Data ([facility]) Vital Signs (Past 12 Hours) Vital Signs Temp Pulse Pulse Resp BP BP Pulse Ox 02/23/21 02:47 36.5 C 65 18 112/69 98 02/23/21 01:45 36.3 C L 59 L 16 115/80 97 02/23/21 00:45 36.6 C 51 L 16 120/80 98 02/23/21 00:15 37 C 43 L 16 109/71 96 02/23/21 00:00 36.6 C 59 L 16 111/74 96 02/22/21 23:55 62 02/22/21 23:41 36.7 C 55 L 16 115/76 97 02/22/21 22:41 36.9 C 63 16 111/73 99 02/22/21 22:28 36.7 C 92 H 18 118/71 100 02/22/21 21:05 36.9 C 78 16 120/73 100 Laboratory Results Laboratory Results - last 24 hr 02/22/21 02/22/21 02/22/21 18:30 18:30 18:40 WBC 5.28 RBC 3.67 L Hgb 6.7 L* Hct 24.1 L MCV 65.7 L MCH 18.3 L MCHC 27.8 L RDW Std Deviation 47.2 H RDW Coeff of Syed 19.7 H Plt Count 417 H MPV 8.7 Immature Gran % (Auto) 0.0 Neut % (Auto) 41.1 Lymph % (Auto) 49.6 Traill % (Auto) 8.3 Eos % (Auto) 0.6 Baso % (Auto) 0.4 Neut # (Auto) 2.17 Lymph # (Auto) 2.62 Traill # (Auto) 0.44 Eos # (Auto) 0.03 Baso # (Auto) 0.02 Immature Gran # (Auto) 0.00 Hypochromasia Anisocytosis Present Microcytosis Present Tear Drop Cells Occasional Ovalocytes 1+ Sodium Potassium Chloride Carbon Dioxide Anion Gap BUN Creatinine Est Cr Clr Drug Dosing Est GFR ( Amer) Est GFR (Non-Af Amer) BUN/Creatinine Ratio Glucose Calcium Magnesium Iron Ferritin Total Bilirubin AST ALT Alkaline Phosphatase Total Protein Albumin Globulin Albumin/Globulin Ratio Vitamin B12 Folate Urine Color Yellow Urine Appearance Clear Urine pH 5.5 Ur Specific Florence 1.013 Urine Protein Negative Urine Glucose (UA) Negative Urine Ketones Negative Urine Blood Negative Urine Nitrite Negative Urine Bilirubin Negative Urine Urobilinogen Negative Ur Leukocyte Esterase Negative POC Ur Test Pending COVID-19 Eval Order SARS-CoV-2 (PCR) Influenza Type A (PCR) Influenza Type B (PCR) RSV (RT-PCR) Blood Type Blood Type Recheck Antibody Screen Crossmatch 02/22/21 02/22/21 02/22/21 18:40 19:24 19:26 WBC RBC Hgb Hct MCV MCH MCHC RDW Std Deviation RDW Coeff of Syed Plt Count MPV Immature Gran % (Auto) Neut % (Auto) Lymph % (Auto) Traill % (Auto) Eos % (Auto) Baso % (Auto) Neut # (Auto) Lymph # (Auto) Traill # (Auto) Eos # (Auto) Baso # (Auto) Immature Gran # (Auto) Hypochromasia Anisocytosis Microcytosis Tear Drop Cells Ovalocytes Sodium 140 Potassium 3.6 Chloride 109 H Carbon Dioxide 25 Anion Gap 5.0 BUN 13 Creatinine 0.61 Est Cr Clr Drug Dosing 101.5 Est GFR ( Amer) 124.2 Est GFR (Non-Af Amer) 107.2 BUN/Creatinine Ratio 20.7 H Glucose 90 Calcium 8.4 L Magnesium Iron 17 L Ferritin Total Bilirubin 0.4 AST 15 ALT 20 Alkaline Phosphatase 93 Total Protein 7.8 Albumin 3.6 Globulin 4.2 H Albumin/Globulin Ratio 0.9 Vitamin B12 Folate Urine Color Urine Appearance Urine pH Ur Specific Florence Urine Protein Urine Glucose (UA) Urine Ketones Urine Blood Urine Nitrite Urine Bilirubin Urine Urobilinogen Ur Leukocyte Esterase POC Ur Test COVID-19 Eval Order SARS-CoV-2 (PCR) Influenza Type A (PCR) Influenza Type B (PCR) RSV (RT-PCR) Blood Type B Positive Blood Type Recheck B Positive Antibody Screen NEGATIVE Crossmatch See Detail 02/22/21 02/22/21 02/23/21 19:35 19:35 05:20 WBC RBC Hgb Hct MCV MCH MCHC RDW Std Deviation RDW Coeff of Syed Plt Count MPV Immature Gran % (Auto) Neut % (Auto) Lymph % (Auto) Traill % (Auto) Eos % (Auto) Baso % (Auto) Neut # (Auto) Lymph # (Auto) Traill # (Auto) Eos # (Auto) Baso # (Auto) Immature Gran # (Auto) Hypochromasia Anisocytosis Microcytosis Tear Drop Cells Ovalocytes Sodium 142 Potassium 3.9 Chloride 113 H Carbon Dioxide 27 Anion Gap 2.0 L BUN 16 Creatinine 0.64 Est Cr Clr Drug Dosing 96.7 Est GFR ( Amer) 122.3 Est GFR (Non-Af Amer) 105.5 BUN/Creatinine Ratio 25.6 H Glucose 86 Calcium 8.0 L Magnesium 2.3 Iron Ferritin 4.2 L Total Bilirubin AST ALT Alkaline Phosphatase Total Protein Albumin Globulin Albumin/Globulin Ratio Vitamin B12 Folate Urine Color Urine Appearance Urine pH Ur Specific Florence Urine Protein Urine Glucose (UA) Urine Ketones Urine Blood Urine Nitrite Urine Bilirubin Urine Urobilinogen Ur Leukocyte Esterase POC Ur Test COVID-19 Eval Order CovFluRsv at [facility] SARS-CoV-2 (PCR) NEGATIVE Influenza Type A (PCR) Negative Influenza Type B (PCR) Negative RSV (RT-PCR) Negative Blood Type Blood Type Recheck Antibody Screen Crossmatch 02/23/21 02/23/21 05:20 05:20 WBC 4.81 RBC 4.43 Hgb 9.8 L D Hct 32.3 L MCV 72.9 L D MCH 22.1 L MCHC 30.3 L RDW Std Deviation 64.9 H RDW Coeff of Syed 24.7 H Plt Count 283 MPV 8.6 Immature Gran % (Auto) 0.2 Neut % (Auto) 30.5 Lymph % (Auto) 58.6 Traill % (Auto) 8.9 Eos % (Auto) 1.2 Baso % (Auto) 0.6 Neut # (Auto) 1.46 Lymph # (Auto) 2.82 Traill # (Auto) 0.43 Eos # (Auto) 0.06 Baso # (Auto) 0.03 Immature Gran # (Auto) 0.01 Hypochromasia Present Anisocytosis Present Microcytosis Tear Drop Cells Ovalocytes 1+ Sodium Potassium Chloride Carbon Dioxide Anion Gap BUN Creatinine Est Cr Clr Drug Dosing Est GFR ( Amer) Est GFR (Non-Af Amer) BUN/Creatinine Ratio Glucose Calcium Magnesium Iron Ferritin Total Bilirubin AST ALT Alkaline Phosphatase Total Protein Albumin Globulin Albumin/Globulin Ratio Vitamin B12 372 Folate 17.40 Urine Color Urine Appearance Urine pH Ur Specific Florence Urine Protein Urine Glucose (UA) Urine Ketones Urine Blood Urine Nitrite Urine Bilirubin Urine Urobilinogen Ur Leukocyte Esterase POC Ur Test COVID-19 Eval Order SARS-CoV-2 (PCR) Influenza Type A (PCR) Influenza Type B (PCR) RSV (RT-PCR) Blood Type Blood Type Recheck Antibody Screen Crossmatch
[2021-02-23] MEDS ORDERED: CHOLECALCIFEROL 1,000 UNITS 25 MCG TAB PO SCH (09:00)
[2021-02-23] MEDS ORDERED: MULTIVITAMIN TAB PO SCH (09:00)
[2021-02-23] MEDS ORDERED: OPTIRAY 300 100mL IV ONE (10:09)
--- NOTE | 2021-02-23 10:16 | CT Scan Report ---
CT abdomen pelvis wo/w con CLINICAL HISTORY: Left flank pain. Anemia. Possible: Malignancy. COMPARISON STUDY: None. TECHNIQUE: Unenhanced images were obtained through the abdomen and pelvis. The patient was then scann ed in a dynamic helical fashion during the intravenous administration of 90 cc of Optiray 320. A dos e lowering technique was utilized adhering to the principles of ALARA. CT DOSE: 608.01 mGy.cm FINDINGS: Lower chest: There are minimal basilar atelectatic changes. Liver: The contrast-enhanced liver is normal in size, contour, and attenuation. There is no intrahepa tic biliary ductal dilatation. The hepatic veins and portal veins are patent. Gallbladder: There is trace pericholecystic fluid. No gallstones are visualized. Spleen: Normal in size and attenuation. Pancreas: Unremarkable. Adrenal glands: Unremarkable. Kidneys: No renal, ureteral, or bladder calculi are visualized. There are no solid renal masses. Bowel: There are no transition zones to indicate bowel obstruction. There is no evidence of acute div erticulitis. There is borderline appendiceal dilatation but the appendix contains air within its lume n. There are no findings to indicate acute appendicitis. Peritoneum: There is no intraperitoneal free air or abdominal ascites. There is rectus diastases. Vasculature: The abdominal aorta is normal in course and caliber. Adenopathy: None. Pelvic viscera: The bladder, and pelvic viscera are unremarkable. Skeletal structures: No destructive osseous lesions are seen. IMPRESSION: 1. No evidence of bowel obstruction. No evidence of free air 2. Trace pericholecystic fluid. No gallbladder distention. No stones identified. 3. No renal, ureteral, or bladder calculi identified 4. No evidence of acute diverticulitis. No evidence of acute appendicitis. 5. No evidence of occult intra-abdominal or pelvic malignancy ACT 112: Negative or not required by law. Electronically signed by: Figueroa Rogers M.D. 02/23/2021 10:15 AM
[2021-02-23] MEDS ORDERED: FERROUS SULFATE 325 MG TAB PO SCH (17:00)
--- NOTE | 2021-02-24 21:08 | Discharge Summary ---
Date of Service February 23, 2021 Admission HPI Per Admitting Provider This is a 50-year-old female with past medical history significant for recurrent UTIs, history of migraines. Was sent from the family doctor because of outpatient labs showing anemia with hemoglobin of 6.9. The patient states she has 3 kids and since her third kid was born in 2012,since then she did not see any doctor. She is from [place]. She was in [place] for 10 years and 4 years ago she moved to [place]. She works in [employer]. She went to family doctor on 02/11/2021 because of headaches. She has a history of migraines, but they are not getting better. At that time, she also complained of shortness of breath on hiking, on exertion. Excedrin Migraine over the counter for migraine was recommended. 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 She denies any blood in the stools or black stools. No hematuria, no abdominal pain, no diarrhea or constipation, no chest pain, no dizziness, no blurred vision, no earache, no runny nose, no cough, no fever, no chills. No Heavy menses. The patient says she is not eating healthy. She only eats , white rice mixed with brown rice every day, does not eat much vegetables, does not like meat or fish. She has three kids and she works in [employer] and she is always busy and she thought her fatigue was possibly from her busy life and never went to a doctor. Currently resting comfortably and hemodynamically stable. Admission Exam Per Admitting Provider GENERAL: The patient is of moderate build, not in acute distress. VITAL SIGNS: Temperature 37, pulse 65, respiratory rate 18, blood pressure 120/81, oxygen 100% on room air. HEENT: Pupils equal, round, reactive to light. Oral mucosa moist. NECK: No JVD, no neck masses. CARDIOVASCULAR: S1, S2 heard, regular rate and rhythm, no murmur, no gallop. RESPIRATORY SYSTEM: Normal AP diameter. No accessory muscle use. No wheezing, no crackles. ABDOMEN: Soft, bowel sounds present, nontender. No distention. CENTRAL NERVOUS SYSTEM: Cranial nerves II-XII grossly intact. Nonfocal. EXTREMITIES: No edema, no erythema. Principal Diagnosis Microcytic anemia/iron deficiency anemia Discharge Exam GENERAL: The patient is of moderate build, not in acute distress. HEENT: NC/AT, Pupils equal, round, reactive to light. Oral mucosa moist. NECK: No JVD, no neck masses. CARDIOVASCULAR: S1, S2 heard, regular rate and rhythm, no murmur, no gallop. RESPIRATORY SYSTEM: Normal AP diameter. No accessory muscle use. No wheezing, no crackles. ABDOMEN: Soft, bowel sounds present, nontender. No distention. NEURO: Alert oriented x3, speech fluent, no facial asymmetry, moves all 4 extremities spontaneously and w/o difficulty EXTREMITIES: No edema, no erythema. SIN: warm, dry, no rashes Discharge Data Allergies Allergy/AdvReac Type Severity Reaction Status Date / Time No Known Allergies Allergy Unverified 02/22/21 19:40 Consultations 02/22/21 19:22 ED Decision to Admit Stat 02/23/21 08:00 Consult Gastroenterology Routine Ordered Studies 02/23/21 09:21 CT abdomen pelvis wo/w con Routine IMPRESSION: 1. No evidence of bowel obstruction. No evidence of free air 2. Trace pericholecystic fluid. No gallbladder distention. No stones identified. 3. No renal, ureteral, or bladder calculi identified 4. No evidence of acute diverticulitis. No evidence of acute appendicitis. 5. No evidence of occult intra-abdominal or pelvic malignancy Hospital Course (1) Microcytic anemia: A 50-year-old female who presents with shortness of breath on exertion and anemia. 1. Symptomatic anemia with shortness of breath on exertion: Hemoglobin 6.7 on admission, microcytic anemia. Iron is low at 17. - iron def. anemia, likely diet related, but will need to rule out other causes As per the patient, she only eats brown rice mixed with white rice, does not eat any vegetables and does not eat meat. She says her menses are getting shorter, no heavy bleeding. No other obvious source of bleeding. UA negat. for blood Hemoccult ordered. checked vitamin B12 and folate levels - wnl. CT abd./pelvis - 1. No evidence of bowel obstruction. No evidence of free air 2. Trace pericholecystic fluid. No gallbladder distention. No stones identified. 3. No renal, ureteral, or bladder calculi identified 4. No evidence of acute diverticulitis. No evidence of acute appendicitis. 5. No evidence of occult intra-abdominal or pelvic malignancy ER ordered 2 units of PRBCs, pt is now s/p blood transfusion, current Hgb 9.8 GI consulted for any other further recommendations. Recommend outpt EGD/ colonoscopy. Iron supplement on discharge. Pt is to closely follow up with PCP for any further workup and follows of labs. 2. History of migraines: Tylenol p.r.n. for now. DVT prophylaxis: SCDs. DISPOSITION: Plan to discharge home and follow with family doctor and GI. Total Time Total Time Spent Total Time Spent (In Minutes): 40 Total Time Includes: Examination of the Patient, Discharge Planning, Medication Reconciliation and Communication With Other Providers Discharge Plan Discharge Items Patient Disposition: Home - Self-Care Reason For Visit: ABNORMAL LABS Discharge Diagnosis: Microcytic anemia/iron deficiency anemia Activity: Per Instructions section Non-emergency contact: Primary Care Provider Call non-emergency contact if: you have any medication questions and your symptoms worsen Follow-up/Referrals: Fabiola Corral MD [Primary Care Provider] - Diet: Regular Addtl Attending Provider Instructions: Follow-up with your primary care doctor, within 1 week. Your blood work should be rechecked, especially your blood count. Take iron supplement as prescribed. It is recommended that you have an upper endoscopy and colonoscopy done as well, you will be contacted about the appointment. Pending Studies at Discharge: No Stand-Alone Forms: My [facility] [employer], Smoking Cessation Medications and DC Order Prescriptions: New ferrous sulfate 325 mg (65 mg iron) Tablet,Delayed Release (Dr/Ec) 325 mg PO BIDM 30 Days Qty: 60 RF: 0 Continued multivitamin Tablet 1 tab PO QAM RF: 0 cholecalciferol (vitamin D3) [Vitamin D3] 25 mcg (1,000 unit) Capsule 0 mcg PO QAM RF: 0 Discharge Orders: Discharge Order (Routine); Ordered 02/23/21 Ordered By: Ketan Taylor Admission Data Admit Date/Time: 02/22/21 21:22 Attending Provider: Ketan Taylor Admit Provider: Ariel Palomino Primary Care Provider: Fabiola Corral Other Providers: Ariel Palomino ; Clint Enrique ; Pearl Mayer ; Eber Crowder ; Aretha Patiño ; Ildefonso Wilson ; Ayaka Watson ; Awa Matthews ; Deny Schwarz ; Randy Hough ; Katerin Marlow ; Adrianna Villeda ; Ayla Mcnulty ; Yohana Mills ; Amina Aguila Other Interventions: Discharge Summary Assessment (RN) Last Done: 02/23/21 15:34
== END 2021-02-23 16:10 | disposition home or self-care (01) ==
LOC: ED 17:20 → 2W 21:22 → INTOOBSV 21:22 → 2W 22:40
DX: D50.9 Iron deficiency anemia, unspecified